=== PATIENT | female | born 1975 | race Caucasian/White ===

== ENCOUNTER 2016-04-23 19:34 | Emergency (ER) | payer BC ==
[2016-04-23] MEDS ORDERED: diphenhydrAMINE 50 MG/1 ML VIAL IVP ONE (19:39)
[2016-04-23] MEDS ORDERED: methylPREDNISolone 125 MG/2 ML VIAL IVP ONE (19:39)
[2016-04-23] MEDS ORDERED: Famotidine Inj 20 MG in Normal Saline Flush 10 ML IVP ONE (19:39)
[2016-04-23] MEDS ORDERED: Sodium Chloride 0.9% 1,000 ML PRIMARY IV ONE (19:39)
[2016-04-23] MEDS ORDERED: NORMAL SALINE 10 ML SYRINGE FLUSH IVP PRN (19:39)
[2016-04-23 19:48] LABS: BASOPHILS # (AUTO) 0.02 10*3/UL; BASOPHILS % (AUTO) 0.2 % (0-1); EOSINOPHILS % (AUTO) 0.8 % (0-8); HEMATOCRIT 46.3 % (37.0-47.0); HEMOGLOBIN 15.8 g/dL (12.0-16.0); IMM GRAN % (AUTO) 0.2 % (0-5); IMM GRAN# (AUTO) 0.02 10*3/UL; LYMPHOCYTES # (AUTO) 2.63 10*3/uL; LYMPHOCYTES % (AUTO) 27.4 % (10-50); MEAN CORPUSCULAR HEMOGLOBIN 30.8 PG (27-31); MEAN CORPUSCULAR HGB CONC 34.1 g/dL (33-37); MEAN PLATELET VOLUME 8.7 FL (7.4-12.2); MONOCYTES # (AUTO) 0.73 10*3/UL (0.3-0.8); MONOCYTES % (AUTO) 7.6 % (5-15); NEUTROPHILS # (AUTO) 6.11 10*3/UL; NEUTROPHILS % (AUTO) 63.8 % (50-80); RDW COEFFICIENT OF VARIATION 13.2 % (11.5-14.5); RED BLOOD COUNT 5.13 10^6/uL (4.20-5.40); WHITE BLOOD COUNT 9.59 10^3/uL (4.8-10.8)
[2016-04-23 19:50] LABS: PLATELET MORPHOLOGY COMMENT NORMAL MORPHOLOGY (NORM)
[2016-04-23 19:54] LABS: ASPARTATE AMINO TRANSFERASE 51 IU/L (8-39); BILIRUBIN,TOTAL 0.7 mg/dL (0.3-1.2); BLOOD UREA NITROGEN 11 mg/dL (7-22); BUN/CREATININE RATIO 12.22 (6-20); CALCIUM 9.8 mg/dL (8.7-10.7); CHLORIDE 107 meq/L (98-112); CREATININE 0.9 mg/dL (0.50-1.20); EST GLOMERULAR FILTRATION > 60 (>60 ml/min/1.73m(2)); GLUCOSE 99 mg/dL (78-110); POTASSIUM 3.7 meq/L (3.8-5.2); SODIUM 144 meq/L (135-145); TOTAL PROTEIN 9.2 g/dL (6.1-8.0)
[2016-04-23 20:23] VITALS: RESP 20; TEMP 98.3
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
--- NOTE | 2016-04-24 05:46 | EKG ---
[address] [address] Measurements Intervals [place] Rate: 103 P: 55 MO: 162 QRS: 59 QRSD: 80 T: 49 QT: 357 QTc: 417 Interpretive Statements SINUS TACHYCARDIA POSSIBLE LEFT ATRIAL ENLARGEMENT ABNORMAL RHYTHM ECG No previous ECG available for comparison Electronically Signed On 04-24-16 16:06:28 [facility] by Mike Hand [email or web address]
== END 2016-04-23 21:15 | disposition home or self-care (01) ==
LOC: ER 19:34
DX: L50.0 Allergic urticaria (principal); Z86.718 Personal history of other venous thrombosis and embolism; Z72.0 Tobacco use
CPT/HCPCS: 80053; 84484; 85025; 85379; 93005; 93010; 96374; 96375; 99283 ×2; J1200; J2930; J7030